=== PATIENT | female | born 1975 | race Caucasian/White ===

== ENCOUNTER 2022-09-25 14:07 | Outpatient (REF) | payer SELFPAY ==
[2022-09-25 14:14] LABS: MANUAL DIFF FLAG NO
[2022-09-25 14:19] LABS: Basophils Percent Auto 0.3 % (0-2); Eosinophils Absolute Auto 0.1 X10*3/uL (0.0-0.4); Eosinophils Percent Auto 0.7 % (0-4); Hematocrit 38.7 % (37.0-47.0); Hemoglobin 12.7 g/dl (12.0-16.0); Imm Gran Abs Auto 0.02 X10*3/uL (0.00-0.03); Imm Gran Pct Auto 0.3 % (0.0-0.4); Lymphocytes Absolute Auto 1.5 X10*3/uL (1.2-4.9); Lymphocytes Percent Auto 19.9 % (20-40); Mean Corpuscular HGB Conc 32.8 g/dl (31.0-35.0); Mean Corpuscular Hemoglobin 28.2 pg (27.0-33.0); Mean Platelet Volume 11.3 fL (9.4-12.3); Monocytes Absolute Auto 0.5 X10*3/uL (0.1-1.2); Monocytes Percent Auto 6.4 % (2-11); Neutrophils Absolute Auto 5.4 x10*3/uL (2.0-8.3); Neutrophils Percent Auto 72.4 % (45-73); Platelet Count 300 X10*3/uL (160-400); Red Cell Distribution Width 12.4 % (11.0-16.0); White Blood Count 7.5 X10*3/uL (4.8-10.8)
[2022-09-25 14:25] LABS: Appearance Urine Clear; Color Urine Yellow; Glucose Urine UA Negative (Negative); Leukocyte Esterase Urine Negative (Negative); Nitrite Urine Negative (Negative); Urine Blood Negative (Negative); Urine Ketones Negative (Negative); Urine Protein Trace mg/dL (Neg-Trace)
[2022-09-25 14:27] LABS: Bacteria Urine Trace (None Seen); WBC Urine 0-5 /HPF (0-5)
[2022-09-25 14:51] LABS: Cholesterol 237 mg/dL; HDL Cholesterol 56 mg/dL; LDL Cholesterol Calculated 152 mg/dl; Triglycerides 147 mg/dL
[2022-09-25 14:55] LABS: Alanine Aminotransferase 24 U/L (0-31); Albumin Level 4.1 g/dL (3.5-5.0); Alkaline Phosphatase 72 U/L (39-117); Anion Gap 14 (12-20); Aspartate Amino Transferase 20 U/L (5-31); Bilirubin Total 0.7 mg/dL (0.0-1.0); Blood Urea Nitrogen 11 mg/dL (9-16); Calcium 9.3 mg/dL (8.4-10.2); Carbon Dioxide 23 mmol/L (22-29); Chloride 106 mmol/L (96-108); Estimated Glomerular Filt Rate > 60; Glucose Fasting 97 mg/dL (60-99); Potassium 3.8 mmol/L (3.3-5.1); Sodium 139 mmol/L (135-145); Total Protein 7.1 g/dL (6.5-8.0)
[2022-09-25 14:58] LABS: Reflex LDLD? No
[2022-09-25 15:06] LABS: TSH reflex Free T4 1.03 uIU/mL (0.32-4.0)
== END 2022-09-25 14:08 | disposition home or self-care (01) ==
LOC: HO.LNP 14:07
PROVIDERS: Visit Provider Internal Medicine
DX: G43.909 Migraine, unspecified, not intractable, without status migrainosus (principal); E66.01 Morbid (severe) obesity due to excess calories; Z68.41 Body mass index [BMI] 40.0-44.9, adult
CPT/HCPCS: 80053; 80061; 81001; 84443; 85025

== ENCOUNTER 2022-10-26 12:50 | Outpatient (REF) | payer BC, SELFPAY ==
[2022-10-26 12:59] LABS: Appearance Urine Clear; Color Urine Yellow; Glucose Urine UA Negative (Negative); Leukocyte Esterase Urine Negative (Negative); Nitrite Urine Negative (Negative); PH 5.5 (5.0-9.0); Specific Gravity - Urine 1.025 (1.005-1.025); Urine Blood Negative (Negative); Urine Ketones Negative (Negative); Urine Protein Negative (Neg-Trace)
[2022-10-26 13:09] LABS: Bacteria Urine Trace (None Seen); Calcium Oxalate Crystals Urine Present; Hyaline Casts Urine 0-2 /LPF (0-2); WBC Urine 0-5 /HPF (0-5)
== END 2022-10-26 12:51 | disposition home or self-care (01) ==
LOC: HO.LNP 12:50
PROVIDERS: Visit Provider Internal Medicine
DX: R31.9 Hematuria, unspecified (principal)
CPT/HCPCS: 81001

== ENCOUNTER 2022-11-27 11:19 | Outpatient (REF) | payer BC, SELFPAY ==
[2022-11-27 11:52] LABS: Appearance Urine Clear; Color Urine Yellow; Glucose Urine UA Negative (Negative); Leukocyte Esterase Urine Negative (Negative); Nitrite Urine Negative (Negative); PH 5.5 (5.0-9.0); Specific Gravity - Urine 1.015 (1.005-1.025); Urine Blood Negative (Negative); Urine Ketones Negative (Negative); Urine Protein Negative (Neg-Trace)
[2022-11-27 11:59] LABS: Bacteria Urine None Seen (None Seen); Hyaline Casts Urine 0-2 /LPF (0-2); RBC Urine 0-2 /HPF (0-2); WBC Urine 0-5 /HPF (0-5)
== END 2022-11-27 11:20 | disposition home or self-care (01) ==
LOC: HO.LNP 11:19
PROVIDERS: Visit Provider Internal Medicine
DX: R31.9 Hematuria, unspecified (principal)
CPT/HCPCS: 81001

== ENCOUNTER 2023-05-23 14:31 | Outpatient (REF) | payer BC, SELFPAY ==
[2023-05-23 16:04] LABS: TSH reflex Free T4 1.62 uIU/mL (0.32-4.0)
[2023-05-24 19:37] LABS: Transglutaminase IgA <1.0 U/mL
[2023-05-24 20:44] LABS: Immunoglobulin A 145 mg/dL (47-310)
== END 2023-05-23 14:32 | disposition home or self-care (01) ==
LOC: HO.LAB 14:31
PROVIDERS: Visit Provider Internal Medicine Gastroenterology
DX: K58.2 Mixed irritable bowel syndrome (principal)
CPT/HCPCS: 36415; 82784; 84443; 86364

== ENCOUNTER 2023-07-02 07:28 | Day surgery (SDC) | payer BC, SELFPAY ==
[2023-06-28 14:27] VITALS: BMI 43.7
--- NOTE | 2023-07-01 09:45 | HO.ANESPROP2 ---
Documented by User: Ariadna Madrigal NP 07/01/23 09:45 HPI - Anesthesia Eval Consult details Narrative: 47yo F for Colonoscopy [facility] Past Medical History Medical History Peptic ulcer Seasonal allergic rhinitis IBS (irritable bowel syndrome) Migraine Surgical History Surgical History (Updated 07/02/23 @ 09:33 by Sherrie Liang RN) No pertinent past surgical history Social History Social History Patient Tobacco Use Status: Never used Tobacco Are you DNR?: No Advance Directives: No Advance Directives Information Provided: Yes Nutrition Risks: No Nutritional Risk FDLMP: a few days ago Meds Allergies Allergy/AdvReac Type Severity Reaction Status Date / Time No Known Allergies Allergy Verified 07/02/23 09:33 Home Medications ?Medication ?Instructions ?Recorded ?Confirmed ?Last Taken ?Type clemaqc-etjhoduiqamzq-rlxwzgoe 250 1 tab PO Q4-6H PRN Migraine 06/28/23 06/28/23 Unknown History mg-250 mg-65 mg tablet (Excedrin Headache Migraine) hyoscyamine sulfate 0.375 mg 0.375 mg PO BID 06/28/23 06/28/23 Unknown History tablet,extended release,12 hr sumatriptan succinate 50 mg tablet 50 mg PO BID PRN Migraine Headache 06/28/23 06/28/23 Unknown History Exam Height,Weight and Vital Signs: Height 5 ft 6 in Weight 122.924 kg Assessment and Plan Assessment Anesthesia Assessment: Chart Reviewed Documented by User: Maria Luz Giles MD 07/02/23 09:54 [facility] Active Problems Active Problems: Morbid Obesity BMI 42.8 Denies XU Past Medical History Medical History Peptic ulcer Seasonal allergic rhinitis IBS (irritable bowel syndrome) Migraine Family History Family history of problems with anesthesia: No Surgical History Surgical History (Updated 07/02/23 @ 09:33 by Sherrie Liang RN) No pertinent past surgical history History of Problems with Anesthesia: No Social History Social History Patient Tobacco Use Status: Never used Tobacco Are you DNR?: No Advance Directives: No Advance Directives Information Provided: Yes Nutrition Risks: No Nutritional Risk FDLMP: a few days ago Meds Allergies Allergy/AdvReac Type Severity Reaction Status Date / Time No Known Allergies Allergy Verified 07/02/23 09:33 Home Medications ?Medication ?Instructions ?Recorded ?Confirmed ?Last Taken ?Type benadsn-yemklfxapuoim-mhiehkqr 250 1 tab PO Q4-6H PRN Migraine 06/28/23 06/28/23 Unknown History mg-250 mg-65 mg tablet (Excedrin Headache Migraine) hyoscyamine sulfate 0.375 mg 0.375 mg PO BID 06/28/23 06/28/23 Unknown History tablet,extended release,12 hr sumatriptan succinate 50 mg tablet 50 mg PO BID PRN Migraine Headache 06/28/23 06/28/23 Unknown History Exam Height,Weight and Vital Signs: Height 5 ft 6 in Weight 122.924 kg Vital Signs Temp Pulse Resp BP Pulse Ox O2 Del Method 07/02/23 09:19 98.4 F 67 18 145/73 H 97 Room Air Pertinent Lab Results Pertinent Lab Results: Lab Results 07/02/23 Range/Units 08:30 Urine Test NEGATIVE (NEGATIVE) Airway Mallampati Class: II TM Dist: >3cm Neck ROM: Full Loose/Missing/Broken Teeth: No (Denies broken, loose, missing teeth) Heart: RRR Lungs: CTAB Assessment and Plan Assessment Anesthesia Assessment: Anesthesia Plan Discussed and Chart Reviewed Final Anesthetic Review Family History of Problems with Anesthesia: No History of Problems with Anesthesia: No NPO: Yes ASA Class: III Final Preanesthetic Review: No Changes in Pt Med Stat, Meds/Allgs Chart Reviewed, Consent Obtained/Reviewed and Anes Risks/Benef Reviewed Patient Risk: Intermediate Procedure Risk: Low Assessment/Block/Sedation in SS: Assess/Block/Sedation-SS Anesthetic Plan Anesthetic Plan: MAC: and TIVA Disposition: Standard PACU
[2023-07-02 08:33] VITALS: BMI 42.8
[2023-07-02 08:42] LABS: UPreg QC Valid YES; Urine Pregnancy NEGATIVE (NEGATIVE)
[2023-07-02] MEDS: Lactated Ringers 1,000 ML 100 ML IVCONT (08:46)
[2023-07-02 09:19] VITALS: BP 145/73; PULSE 67; RESP 18; TEMP 36.9; O2SAT 97
--- NOTE | 2023-07-02 09:33 | MHC.SHP ---
Pre-Procedural Eval Section A - 24 Hr Update-Section A only Date of Service: 07/02/23 Section B - Complete if H&P > 30 days Chief Complaint: Encounter for screening for malignant neoplasm of Details of Present Illness: see H&P no changes Relevant Family History (Specify if Yes): No Relevant Social History: None Present Medications: None Medical History: No relevant PMH History of Previous Operations: No relevant previous surgery Allergies: Allergies Allergy/AdvReac Type Severity Reaction Status Date / Time No Known Allergies Allergy Verified 06/28/23 14:27 Review of Systems Sugical H&P ROS: Negative: Constitution, Cardiovascular, Respiratory, Neurological, Psychiatric, Hem-Onc, Allergic/Immunologic, Gastrointestinal, Genitourinary, Musculoskeletal, Integumentary, Endocrine and Eyes/Ears/Nose/Throat Exam Surgical H&P Exam: Normal: HEENT, Normal: Heart, Normal: Lungs, Normal: Extremities, Normal: Abdomen, Normal: Skin and Normal: Neurological Plan Diagnosis/Plan: Unchanged I have reviewed the history and physical and performed a pertinent physical examination on my patient. No changes have occurred unless specified. Time Spent With Patient Time: Total time managing care of this patient today ____ minutes.
[2023-07-02 10:09] VITALS: BP 102/75; PULSE 66; RESP 12; TEMP 37.6; O2SAT 98
--- NOTE | 2023-07-02 10:24 | OP_ITS ---
DATE OF SERVICE: 07/02/2023 SURGEON: Mitesh Sr MD INDICATIONS: Colon cancer screening. PREOPERATIVE DIAGNOSIS: POSTOPERATIVE DIAGNOSIS: PROCEDURE PERFORMED: Colonoscopy to the terminal ileum. ESTIMATED BLOOD LOSS: COMPLICATIONS: ANESTHESIA: Monitored anesthesia care. ASSISTANTS: SPECIMENS: DESCRIPTION OF PROCEDURE: A history and physical was performed. The risks and benefits of the procedure were explained to the patient and informed consent was obtained. The patient was placed in the left lateral decubitus position. A digital rectal exam was performed and was found to be normal. The Olympus pediatric video colonoscope was introduced into the rectum and advanced to the cecum. The cecum was identified by transillumination, palpation, and identification of ileocecal valve. Examination was performed and the scope was removed. She tolerated the procedure well and was returned to recovery area in stable condition. FINDINGS: The terminal ileum was normal. The visualized colonic mucosa was within normal limits without evidence of masses or ulcers. No polyps were identified. The quality of the prep was good. Retroflexed examination showed small internal hemorrhoids. IMPRESSION: Normal colonoscopy. RECOMMENDATIONS: 1. Follow up as needed. 2. Repeat colonoscopy is recommended in 10 years for average-risk individuals. MD CELE Gloria/MI / [phone]
[2023-07-02 10:34] VITALS: BP 131/80; PULSE 61; RESP 18; TEMP 36.3; O2SAT 98
== END 2023-07-02 11:01 | disposition home or self-care (01) ==
PROVIDERS: Nurse Practitioner; PCP Internal Medicine; Visit Provider Internal Medicine Gastroenterology
PROC: 0DJD8ZZ Inspection of Lower Intestinal Tract, Via Natural or Artificial Opening Endoscopic (ICD-10-PCS; CPT 45378; principal; 2023-07-02 09:50)
DX: Z12.11 Encounter for screening for malignant neoplasm of colon (principal); K64.8 Other hemorrhoids; K58.2 Mixed irritable bowel syndrome
CPT/HCPCS: 45378; 81025; J2704

== ENCOUNTER 2024-01-10 10:29 | Outpatient (REF) | payer BC, SELFPAY ==
[2024-01-10 10:32] LABS: MANUAL DIFF FLAG NO
[2024-01-10 11:29] LABS: Basophils Percent Auto 0.4 % (0-2); Eosinophils Absolute Auto 0.1 X10*3/uL (0.0-0.4); Eosinophils Percent Auto 1.1 % (0-4); Hematocrit 38.6 % (37.0-47.0); Hemoglobin 12.5 g/dl (12.0-16.0); Imm Gran Abs Auto 0.03 X10*3/uL (0.00-0.03); Imm Gran Pct Auto 0.4 % (0.0-0.4); Lymphocytes Absolute Auto 2.5 X10*3/uL (1.2-4.9); Lymphocytes Percent Auto 31.3 % (20-40); Mean Corpuscular HGB Conc 32.4 g/dl (31.0-35.0); Mean Corpuscular Hemoglobin 28.2 pg (27.0-33.0); Mean Corpuscular Volume 87.1 fL (80.0-98.0); Mean Platelet Volume 11.4 fL (9.4-12.3); Monocytes Absolute Auto 0.5 X10*3/uL (0.1-1.2); Monocytes Percent Auto 6.6 % (2-11); Neutrophils Absolute Auto 4.8 x10*3/uL (2.0-8.3); Neutrophils Percent Auto 60.2 % (45-73); Platelet Count 294 X10*3/uL (160-400); Red Blood Count 4.43 X10*6/uL (4.20-5.50); Red Cell Distribution Width 12.7 % (11.0-16.0)
[2024-01-10 11:30] LABS: Appearance Urine Cloudy; Color Urine Yellow; Glucose Urine UA Negative (Negative); Leukocyte Esterase Urine Negative (Negative); Nitrite Urine Negative (Negative); PH 5.5 (5.0-9.0); Specific Gravity - Urine 1.015 (1.005-1.025); UMIC TRIGGER UACC YES; Urine Blood Moderate (2+) (Negative); Urine Ketones Negative (Negative); Urine Protein Negative (Neg-Trace)
[2024-01-10 11:48] LABS: Bacteria Urine 3+ (None Seen); Hyaline Casts Urine 0-2 /LPF (0-2); RBC Urine 0-2 /HPF (0-2); WBC Urine 0-5 /HPF (0-5)
[2024-01-10 12:13] LABS: Alanine Aminotransferase 44 U/L (0-31); Albumin Level 3.9 g/dL (3.5-5.0); Alkaline Phosphatase 79 U/L (39-117); Anion Gap 11 (12-20); Aspartate Amino Transferase 32 U/L (5-31); Bilirubin Total 0.2 mg/dL (0.0-1.0); Blood Urea Nitrogen 9 mg/dL (9-16); Calcium 9.4 mg/dL (8.4-10.2); Carbon Dioxide 24 mmol/L (22-29); Chloride 107 mmol/L (96-108); Cholesterol 217 mg/dL (<200); Estimated Glomerular Filt Rate > 60; Glucose Fasting 97 mg/dL (60-99); HDL Cholesterol 55 mg/dL (>40); LDL Cholesterol Calculated 131 mg/dL (<100); Potassium 4.1 mmol/L (3.3-5.1); Sodium 138 mmol/L (135-145); Total Protein 6.9 g/dL (6.5-8.0); Triglycerides 159 mg/dL (<150)
== END 2024-01-10 10:30 | disposition home or self-care (01) ==
LOC: HO.LNP 10:29
PROVIDERS: Visit Provider Internal Medicine
DX: Z00.00 Encounter for general adult medical examination without abnormal findings (principal)
CPT/HCPCS: 80053; 80061; 81001; 85025

== ENCOUNTER 2024-02-20 08:50 | Emergency (ER) | payer BC, SELFPAY ==
[2024-02-20 08:55] VITALS: BP 107/71; PULSE 106; RESP 16; TEMP 36.8; O2SAT 96; BMI 42.7
[2024-02-20 09:40] LABS: Basophils Percent Auto 0.2 % (0-2); Hematocrit 39.4 % (37.0-47.0); Hemoglobin 13.7 g/dl (12.0-16.0); Imm Gran Abs Auto 0.04 X10*3/uL (0.00-0.03); Imm Gran Pct Auto 0.3 % (0.0-0.4); Lymphocytes Absolute Auto 0.4 X10*3/uL (1.2-4.9); Lymphocytes Percent Auto 3.7 % (20-40); MANUAL DIFF FLAG SCAN; Mean Corpuscular HGB Conc 34.8 g/dl (31.0-35.0); Mean Corpuscular Volume 83.5 fL (80.0-98.0); Monocytes Absolute Auto 0.6 X10*3/uL (0.1-1.2); Neutrophils Absolute Auto 10.8 x10*3/uL (2.0-8.3); Neutrophils Percent Auto 90.8 % (45-73); Platelet Count 304 X10*3/uL (160-400); Red Blood Count 4.72 X10*6/uL (4.20-5.50); Red Cell Distribution Width 12.8 % (11.0-16.0); SCAN SMEAR FLAG 1; White Blood Count 11.9 X10*3/uL (4.8-10.8)
--- NOTE | 2024-02-20 09:41 | ED.NAVMDI ---
HPI - Nausea/Vomiting/Diarrhea General Chief complaint: Nausea/Vomiting/Diarrhea Stated complaint: quest food poison Time Seen by Provider: 02/20/24 09:29 Source: patient, RN notes reviewed and old records reviewed Mode of arrival: ambulatory History of Present Illness ED Provider: Kelsey Franklin PA-C HPI Narrative: 48-year-old female with a past medical history of IBS, migraines, peptic ulcer, presenting to the ED complaining of suspected food poisoning with abdominal discomfort, nausea, vomiting, and diarrhea since yesterday. Reports abdominal pain when vomiting. Denies hematemesis, bloody BMs or melena, suspicious food intake, recent travel, dysuria/hematuria, sick contacts Related Data Home Medications ?Medication ?Instructions ?Recorded ?Confirmed fudvbzs-eifzuiszimwka-eoqdzsuh 250 1 tab PO Q4-6H PRN Migraine 06/28/23 06/28/23 mg-250 mg-65 mg tablet (Excedrin Headache Migraine) hyoscyamine sulfate 0.375 mg 0.375 mg PO BID 06/28/23 06/28/23 tablet,extended release,12 hr sumatriptan succinate 50 mg tablet 50 mg PO BID PRN Migraine Headache 06/28/23 06/28/23 Previous Rx's ?Medication ?Instructions ?Recorded ondansetron 4 mg disintegrating 4 mg PO Q8H PRN nausea and 02/20/24 tablet vomiting #10 tabs Allergies Allergy/AdvReac Type Severity Reaction Status Date / Time No Known Allergies Allergy Verified 02/20/24 08:58 Review of Systems Review of Systems: Yes all other systems are reviewed and are negative Constitutional: Constitutional: Reports as per [facility] Past Medical History Attestation statement: The following information was validated with the patient. Source: old records reviewed Medical History Peptic ulcer Seasonal allergic rhinitis IBS (irritable bowel syndrome) Migraine Surgical History No pertinent past surgical history Social History Social History Patient Tobacco Use Status: Never used Tobacco Smoked in Last 30 Days: No Use of substances other than those prescribed or required for medical reasons: No Advance Directives: No Patient : No Physical Exam Vital Signs: Vital Signs: Last Vital Signs Temp 98.6 F 02/20/24 13:15 Pulse 82 02/20/24 13:15 Resp 16 02/20/24 13:15 BP 109/72 02/20/24 13:15 Pulse Ox 96 02/20/24 13:15 O2 Del Method Room Air 02/20/24 13:15 BMI result Body Mass Index 42.7 Const: General: cooperative, healthy appearing and no acute distress Orientation/consciousness: patient oriented x3 Limitations: no limitations HEENT: Head: Yes normal to inspection and Yes atraumatic Ears: hearing grossly normal bilaterally General nose exam: Normal external nose present Face and sinus: Yes normal facial exam Eyes: General: appearance normal, both eyes and all related structures EOM: EOMs intact bilaterally Neck: Neck: Yes normal visual inspection and Yes no meningeal signs Resp: Effort & Inspection: normal respiratory effort and no respiratory distress Auscultation: clear to auscultation bilaterally Cardio: Rate: regular rate Heart sounds: S1 normal heart sound present and S2 normal heart sound present GI: Inspection: Yes normal to inspection Palpation (GI): Soft to palpation, nontender, no guarding and not rigid : General: Yes no CVA tenderness Back/Spine/Pelvis: Back: no CVA tenderness Skin: Rashes: no rashes Wounds: no wounds Neuro: General: patient oriented x3, tone normal and no meningeal signs Cranial nerves: Yes CN's II-XII intact bilaterally Gait exam (Neuro): Normal gait present Extrem: General: Yes normal to inspection Course Course Course Narrative: -1135--labs reassuring. Patient unable to supply UA or stool studies yet at this time. Will p.o. trial -1248--patient reports symptomatic improvement on re-evaluation. Patient tolerated p.o. without pain, nausea or vomiting. UA negative. > feels comfortable for discharge at this time Medications Administered Discontinued Medications Generic Name Dose Route Start Last Admin Trade Name Freq PRN Reason Stop Dose Admin Famotidine 20 mg 02/20/24 09:39 02/20/24 09:51 Famotidine/Pf 20 Mg/2 Ml Vial IVPUSH 02/20/24 09:40 20 mg ONCE ONE Administration Sodium Chloride 1,000 mls @ 999 mls/hr 02/20/24 09:45 02/20/24 10:46 Ns IV 02/20/24 10:45 Infused .Q1H1M BELEN Infusion Ketorolac Tromethamine 15 mg 02/20/24 09:39 02/20/24 09:50 Ketorolac Tromethamine 15 Mg/Ml Vial IVPUSH 02/20/24 09:40 15 mg ONCE ONE Administration Ondansetron HCl 4 mg 02/20/24 09:39 02/20/24 09:49 Ondansetron Hcl 4 Mg/2 Ml Vial IVPUSH 02/20/24 09:40 4 mg ONCE ONE Administration Medical Decision Making Medical Decision Making MDM Narrative: 48-year-old female with a past medical history of IBS, migraines, peptic ulcer, presenting to the ED complaining of suspected food poisoning with abdominal discomfort, nausea, vomiting, and diarrhea since yesterday. On exam mildly tachycardic likely from dehydration, NAD, nontoxic appearing, abdomen soft/nontender, no CVAT. Concern for gastroenteritis vs food poisoning vs metabolic abnormalities. Low suspicion for severe sepsis at this time. Low suspicion for acute pancreatitis/cholecystitis/lithiasis, appendicitis or diverticulitis without tenderness on exam Plan: Labs, UA, IVF, antiemetics, re-evaluate Please refer to course for remaining clinical decision making, interpretation of labs/imaging results, and discussions with consultants and/or family members. Differential Diagnosis Differential Diagnoses: The differential diagnosis associated with the presentation includes As above Admission/Observation Consideration of admission/observation: Escalation of care including admission/observation considered Lab Data [facility] Lab Attestation statement: I reviewed the patient's lab results. 02/20/24 09:28 02/20/24 09:28 Labs: Lab Results 02/20/24 02/20/24 Range/Units 09:28 12:37 WBC 11.9 H (4.8-10.8) X10*3/uL RBC 4.72 (4.20-5.50) X10*6/uL Hgb 13.7 (12.0-16.0) g/dl Hct 39.4 (37.0-47.0) % MCV 83.5 (80.0-98.0) fL MCH 29.0 (27.0-33.0) pg MCHC 34.8 (31.0-35.0) g/dl RDW 12.8 (11.0-16.0) % Plt Count 304 (160-400) X10*3/uL MPV 11.0 (9.4-12.3) fL Immature Gran % (Auto) 0.3 (0.0-0.4) % Neut % (Auto) 90.8 H (45-73) % Lymph % (Auto) 3.7 L (20-40) % Martin % (Auto) 5.0 (2-11) % Eos % (Auto) 0.0 (0-4) % Baso % (Auto) 0.2 (0-2) % Lymph # (Auto) 0.4 L (1.2-4.9) X10*3/uL Martin # (Auto) 0.6 (0.1-1.2) X10*3/uL Eos # (Auto) 0.0 (0.0-0.4) X10*3/uL Baso # (Auto) 0.0 (0.0-0.2) X10*3/uL Abs Immat Gran (auto) 0.04 H (0.00-0.03) X10*3/uL Absolute Neuts (auto) 10.8 H (2.0-8.3) x10*3/uL Absolute Nucleated RBC 0.000 (0.0-0.012) X10*3/uL Nucleated RBC % (auto) 0.0 (0.0-0.2) /100WBC Smear Tech's Comments VERIFIED Sodium 136 (135-145) mmol/L Potassium 4.2 (3.3-5.1) mmol/L Chloride 105 (96-108) mmol/L Carbon Dioxide 23 (22-29) mmol/L Anion Gap 12 (12-20) BUN 19 H (9-16) mg/dL Creatinine 0.98 (0.5-1.4) mg/dL Estim Creat Clear Calc 94.6 Estimated GFR > 60 Random Glucose 135 H (60-115) mg/dL Calcium 9.3 (8.4-10.2) mg/dL Magnesium 1.6 (1.6-2.6) mg/dL Total Bilirubin 0.5 (0.0-1.0) mg/dL Direct Bilirubin 0.2 (0.0-0.5) mg/dL AST 27 (5-31) U/L ALT 30 (0-31) U/L Alkaline Phosphatase 72 (39-117) U/L Total Protein 7.4 (6.5-8.0) g/dL Albumin 4.1 (3.5-5.0) g/dL Lipase 12 (8-78) U/L Urine Color Dark Yellow Urine Appearance Turbid Urine pH 5.5 (5.0-9.0) Ur Specific [place] >= 1.030 H (1.005-1.025) Urine Protein 30 (1+) H (Neg-Trace) mg/dL Urine Glucose (UA) Negative (Negative) mg/dL Urine Ketones Trace (Negative) mg/dL Urine Blood Negative (Negative) Urine Nitrite Negative (Negative) Ur Leukocyte Esterase Negative (Negative) Urine RBC 0-2 (0-2) /HPF Urine WBC 0-5 (0-5) /HPF Ur Squamous Epith Cells 6-10 (0-2) /HPF Urine Bacteria 1+ (None Seen) Hyaline Casts 3-5 (0-2) /LPF Urine Test NEGATIVE (NEGATIVE) Radiology Impression Discussion of test interpretation with radiology: I have reviewed the radiologist's reading. External Record Review External record reviewed: Inpatient record, Office record, Outpatient record, Prior outpatient labs, Prior outpatient radiology, Primary care record and Outside ED record Tests considered The following testing was considered but not selected: As above Prescription Management I considered prescription management with: Pain Medication and Antibiotic Chronic Conditions Patient?s care impacted by: Other Social Determinants Patient?s care significantly limited by Social Determinants of Health including: Other Social Determinant of Health Discharge Plan Discharge Clinical Impression: Gastroenteritis Patient Disposition: Home, Self-Care Instructions: Gastroenteritis (DC) Additional Instructions: Your blood work and urine are reassuring Please have close follow-up with her doctor Practice a bland diet for the next few days, avoid spicy foods, sweets, caffeine and chocolate Zofran as for nausea, take as needed for nausea and vomiting Make sure you are staying hydrated If her symptoms persist or worsen, you are unable to eat or drink have persistent nausea or vomiting or diarrhea return to the ED Prescriptions: New ondansetron 4 mg tablet,disintegrating 4 mg PO Q8H PRN (Reason: nausea and vomiting) Qty: 10 0RF No Action sumatriptan succinate 50 mg tablet 50 mg PO BID PRN (Reason: Migraine Headache) hyoscyamine sulfate 0.375 mg tablet extended release 12 hr 0.375 mg PO BID Excedrin Migraine 250-250-65 mg Tablet 1 tab PO Q4-6H PRN (Reason: Migraine Headache) Referrals: Bradley Carcamo MD [Primary Care Provider] - 3 days Stand Alone Forms: Work/School Release Interventions: ED Discharge Assessment Last Done: 02/20/24 13:15 Discharge Date/Time: 02/20/24 13:16 Print Language: Cook Islander
[2024-02-20] MEDS: 0.9 % Sodium Chloride 1,000 ML 999 ML IV (09:48)
[2024-02-20] MEDS: ondansetron HCL 4 MG/2 ML VIAL IVPUSH (09:49)
[2024-02-20] MEDS: Ketorolac Tromethamine 15 MG/ML VIAL IVPUSH (09:50)
[2024-02-20] MEDS: Famotidine/PF 20 MG/2 ML VIAL IVPUSH (09:51)
[2024-02-20 09:54] LABS: Anion Gap 12 (12-20)
[2024-02-20 09:56] LABS: Alanine Aminotransferase 30 U/L (0-31); Albumin Level 4.1 g/dL (3.5-5.0); Alkaline Phosphatase 72 U/L (39-117); Aspartate Amino Transferase 27 U/L (5-31); Bilirubin Direct 0.2 mg/dL (0.0-0.5); Bilirubin Total 0.5 mg/dL (0.0-1.0); Blood Urea Nitrogen 19 mg/dL (9-16); Calcium 9.3 mg/dL (8.4-10.2); Carbon Dioxide 23 mmol/L (22-29); Chloride 105 mmol/L (96-108); Creatinine Clr Calc Pharmacy 94.6; Estimated Glomerular Filt Rate > 60; Glucose Random 135 mg/dL (60-115); Lipase 12 U/L (8-78); Magnesium 1.6 mg/dL (1.6-2.6); Potassium 4.2 mmol/L (3.3-5.1); Sodium 136 mmol/L (135-145); Total Protein 7.4 g/dL (6.5-8.0)
[2024-02-20 09:59] LABS: SLIDE REVIEW VERIFIED
[2024-02-20 12:41] VITALS: BP 109/72; PULSE 82; RESP 16; TEMP 37; O2SAT 96
[2024-02-20 12:44] LABS: Appearance Urine Turbid; Color Urine Dark Yellow; Glucose Urine UA Negative (Negative); Leukocyte Esterase Urine Negative (Negative); Nitrite Urine Negative (Negative); PH 5.5 (5.0-9.0); Specific Gravity - Urine >= 1.030 (1.005-1.025); UMIC TRIGGER UACC YES; UPreg QC Valid YES; Urine Blood Negative (Negative); Urine Ketones Trace mg/dL (Negative); Urine Protein 30 (1+) mg/dL (Neg-Trace)
[2024-02-20 12:45] LABS: Urine Pregnancy NEGATIVE (NEGATIVE)
[2024-02-20 12:46] LABS: Bacteria Urine 1+ (None Seen); RBC Urine 0-2 /HPF (0-2); WBC Urine 0-5 /HPF (0-5)
[2024-02-20 13:15] VITALS: BP 109/72; PULSE 82; RESP 16; TEMP 37; O2SAT 96
== END 2024-02-20 13:16 | disposition home or self-care (01) ==
PROVIDERS: Physician Assistant; Emergency Provider Emergency Medicine; PCP Internal Medicine
DX: K52.9 Noninfective gastroenteritis and colitis, unspecified (principal); R11.2 Nausea with vomiting, unspecified
CPT/HCPCS: 36415; 80048; 80076; 81001; 81025; 83690; 83735; 85025; 96361; 96374; 96375; 99284; 99285; J1885; J2405

== ENCOUNTER 2024-04-10 09:41 | Outpatient (REF) | payer BC, SELFPAY ==
--- NOTE | ~2024-04-10 | FL_ITS ---
EXAMINATION: XR FLUOROSCOPY UPPER GI SERIES CLINICAL INFORMATION: Dysphagia, reflux, has been improving since treatment with omeprazole. COMPARISON: None TECHNIQUE: Fluoroscopic air contrast upper GI examination was performed utilizing standard techniques with thin and thick barium and effervescent granules. Numerous spot images were obtained. Several fluoroscopic image hold cine sequences were also obtained. FINDINGS: UPPER GI SERIES: Lateral cine images of the oropharynx and hypopharynx demonstrate normal swallow mechanism with normal epiglottic inversion and soft palate elevation. No tracheal penetration, glottic or subglottic aspiration identified. No nasopharyngeal reflux present. Hypopharyngeal structures appear normal without evidence of mass or diverticulum. There was no significant cricopharyngeal achalasia. Dual and single contrast images of the esophagus demonstrate normal caliber, contour, and mucosal pattern. No evidence of stricture, mass, or ulcerations identified. Esophageal peristalsis was minimally disordered. No evidence of hiatus hernia identified. There was significant gastroesophageal reflux to the level of the thoracic inlet. Dual contrast and single contrast images of the stomach demonstrated normal contour and mucosal pattern without evidence of mass, ulceration, or other abnormality. Contrast freely passed into the gastric antrum and duodenal bulb without delay. Single and air-contrast images of the duodenal bulb demonstrate no abnormality. The duodenal sweep has a normal appearance, course, and mucosal fold appearance. FLUOROSCOPY TIME: 2 minutes, 33 seconds Number of Spot Images:10 Number of cines obtained: 12 DOSE AREA PRODUCT: 3256 uGy-m2 (microgray-meter squared) FL/FL upper GI w air IMPRESSION: 1. There was significant gastroesophageal reflux observed during the course of the examination. 2. Minimally disordered esophageal peristalsis. Otherwise normal appearing esophagus. 3. No hiatus hernia. Stomach and duodenum are normal in appearance. Electronically signed by: Gustavo Oliver MD 04/10/2024 10:39 AM [facility]
--- OUTSIDE RECORDS SUMMARY | 2024-04-10 10:11 | XMS_ITS ---
Author Organization [facility] Address [address] [place] [id number] Care Team Providers Care Candy Attendant Name Role Phone Dona HUNT, Bradley Primary Care Provider Morena Sr Jr, Mitesh Unavailable ALLERGIES No Known Allergies RESULTS Component Value Reference Range Notes TSH reflex Free T4 Reviewed date:05/28/2023 04:33:32 PM Interpretation: Performing Lab:[facility], [address] [place] [phone] Notes/Report: TSH reflex Free T4 1.62 0.32-4.0 uIU/mL REASON FOR VISIT Patient presents today for IRRITABLE BOWEL SYNDROME MEDICATIONS Medication SIG (Take, Route, Frequency, Duration) Notes Start Date End Date Status Excedrin Migraine 250-250-65 MG 2 tablets Orally Once a day for 30 day(s) Active Claritin 10 MG 1 tablet Orally Once a day for 30 day(s) Active Hyoscyamine Sulfate ER 0.375 MG Oral for 30 Active MiraLax (colon prep) 17 GM/SCOOP mixed with Gatorade or Crystal Light Orally begin at 5:00 p.m. the day before the procedure for 1 day 05/23/2023 Active Hyoscyamine Sulfate ER 0.375 MG 1 tablet Orally every 12 hrs for 30 day(s) 05/23/2023 Active SUMAtriptan Succinate 50 MG Oral for 10 Active SOCIAL HISTORY Tobacco Use: Social History Observation Description Date Details (start date - stop date) Never Smoker NA - NA Sex Assigned At : Social History Observation Description Sex Assigned At Unknown Tobacco Use/Smoking Question Answer Notes Patient is a nonsmoker Alcohol Screen Question Answer Notes Did you have a drink contain ing alcohol in the past year? Yes How often did you have a dri nk containing alcohol in the past year? Never (0 point) How many drinks did you have on a typical day when you were drinking in the past year? 1 or 2 drinks (0 point) How often did you have 6 or more drinks on one occasion in the past year? Never (0 point) Points 0 Interpretation Negative PROBLEMS Problem Type ICD Code Onset Dates Problem Status W/U Status Risk SNOMED Code Notes Problem Irritable bowel syndrome with both constipation and diarrhea (K58.2) Active confirmed 05202839 Problem Colon cancer screening (Z12.11) Active confirmed 755192993 VITAL SIGNS BMI 43.74 kg/m2 05/23/2023 Blood pressure systolic 00 mm Hg 05/23/19 24 Blood pressure diastolic 00 mm Hg 024 Height 5 ft 6 in in 05/23/2023 Weight 271 lbs 05/23/2023 Encounters Encounter Location Date Provider Diagnosis [facility] [address] [facility] [address] [place] [id number] 05/23/2023 Mitesh Sr Jr Irritable bowel syndrome with both constipation and diarrhea K58.2 and Colon cancer screening Z12.11 ASSESSMENTS Encounter Date Diagnosis Assessment Notes Treatment Notes Treatment Clinical Notes 05/23/2023 Irritable bowel syndrome with both constipation and diarrhea (ICD-10 - K58.2) Irritable bowel syndrome material was printed 05/23/2023 Colon cancer screening (ICD-10 - Z12.11) PLAN OF TREATMENT Medication Medication Name Sig Start Date Stop Date Notes MiraLax (colon prep) 17 GM/SCOOP mixed with Gatorade or Crystal Light Orally begin at 5:00 p.m. the day before the procedure for 1 day 05/23/2023 Hyoscyamine Sulfate ER 0.375 MG 1 tablet Orally every 12 hrs for 30 day(s) 05/23/2023 Treatment Notes Assessment Notes Irritable bowel syndrome wit h both constipation and diarrhea Irritable bowel syndrome material was printed Pending Test Test Name Order Date IgA 05/23/2023 TRANSGLUTAMINASE AB IGA 05/23/2023 Future Test Test Name Order Date COLONOSCOPY 05/23/2023 Next Appt Details Follow Up: 1 Year, Reason: Progress Notes * Examination Category Sub-Category Detail Notes General Examination GENERAL APPEARANCE: in no ac absentee-shawnee distress HEAD: normocephalic EYES: sclera non-icteric NECK/THYROID: no lymphadenopathy HEART: S1, S2 normal, no mu rmurs CHEST: normal shape and exp ansion LUNGS: clear to auscultatio n bilaterally ABDOMEN: soft, nontender, non distended, bowel sounds present, no organomegaly SKIN: anicteric. Tattoos a re present EXTREMITIES: no clubbing, cyanosi s, or edema PSYCH: cognitive function i ntact ORAL CAVITY: mucosa moist
--- OUTSIDE RECORDS SUMMARY | 2024-04-10 10:11 | XMS_ITS | Patient Health Record ---
Author Organization Bradley Carcamo MD Address [address] [place], [place] [id number] Care Team Providers Care Injection Press Operator Name Role Phone Bradley Carcamo Primary Care Provider Allergies No Known Allergies Results Component Value Reference Range Notes Complete Blood Count Auto Di ff Reviewed date:01/10/2024 12:46:28 PM Interpretation: Performing Lab:[facility], [address] [place] [phone] Notes/Report: White Blood Count 8.0 4.8-10.8 X10*3/uL Red Blood Count 4.43 4.20-5.50 X10*6/uL Hemoglobin 12.5 12.0-16.0 g/dl Hematocrit 38.6 37.0-47.0 % Mean Corpuscular Volume 87.1 80.0-98.0 fL Mean Corpuscular Hemoglobin 28.2 27.0-33.0 pg Mean Corpuscular HGB Conc 32.4 31.0-35.0 g/dl Red Cell Distribution Width 12.7 11.0-16.0 % Platelet Count 294 160-400 X10*3/uL Mean Platelet Volume 11.4 9.4-12.3 fL Neutrophils Percent Auto 60.2 45-73 % Imm Gran Pct Auto 0.4 0.0-0.4 % Lymphocytes Percent Auto 31.3 20-40 % Monocytes Percent Auto 6.6 2-11 % Eosinophils Percent Auto 1.1 0-4 % Basophils Percent Auto 0.4 0-2 % NRBC Pct Auto 0.0 0.0-0.2 /100WBC Neutrophils Absolute Auto 4.8 2.0-8.3 x10*3/u L Imm Gran Abs Auto 0.03 0.00-0.03 X10*3/uL Lymphocytes Absolute Auto 2.5 1.2-4.9 X10*3/u L Monocytes Absolute Auto 0.5 0.1-1.2 X10*3/uL Eosinophils Absolute Auto 0.1 0.0-0.4 X10*3/u L Basophils Absolute Auto 0.0 0.0-0.2 X10*3/uL NRBC Abs Auto 0.000 0.0-0.012 X10*3/uL Comprehensive [place]. Panel Fa st Reviewed date:01/10/2024 12:48:05 PM Interpretation: Performing Lab:[facility], [address] [place] [phone] Notes/Report: Sodium 138 135-145 mmol/L Potassium 4.1 3.3-5.1 mmol/L Chloride 107 96-108 mmol/L Carbon Dioxide 24 22-29 mmol/L Anion Gap 11 12-20 Blood Urea Nitrogen 9 9-16 mg/dL Creatinine 0.77 0.5-1.4 mg/dL Estimated Glomerular Filt Rate > 60 Chronic Kidney Disease: Estimated GFR < 60 mL/min/1.73m2 Severe Kidney Disease: Estimated GFR < 15 mL/min/1.73m2 Glucose Fasting 97 60-99 mg/dL Calcium 9.4 8.4-10.2 mg/dL Bilirubin Total 0.2 0.0-1.0 mg/dL Aspartate Amino Transferase 32 5-31 U/L Alanine Aminotransferase 44 0-31 U/L Total Protein 6.9 6.5-8.0 g/dL Albumin Level 3.9 3.5-5.0 g/dL Alkaline Phosphatase 79 39-117 U/L Lipid Panel Reviewed date:01/10/2024 12:16:21 PM Interpretation: Performing Lab:[facility], [address] [place] [phone] Notes/Report: Triglycerides 159 <150 mg/dL Desirable Triglyceride: less than 150 mg/dL Borderline High Triglyceride 150-199 mg/dL High Triglyceride: 200-499 mg/dL Very High Triglyceride: greater than or equal to 5OO mg/dL Cholesterol 217 <200 mg/dL Desirable Cholesterol: less than 200 mg/dL Borderline High Cholesterol: 200-239 mg/dL High Cholesterol: greater than 239 mg/dL LDL Cholesterol Calculated 131 <100 mg/dL Desirable LDL: less than 100 mg/dL Near Optimal/Above Optimal LDL: 110-129 mg/dL Borderline High LDL: 130-159 mg/dL High LDL: 160-189 mg/dL Very High LDL: greater than or equal to 190 mg/dL HDL Cholesterol 55 >40 mg/dL Desirable HDL: greater than 40 mg/dL Note: This HDL assay may give artificially low results in patients with liver disease. UA ClnCatch+Micro w/rflx Cul t Reviewed date:01/21/2024 02:59:27 PM Interpretation:CBACK 01/20 HEMATURIA Performing Lab:[facility], [address] [place] [phone] Notes/Report: Urine, Clean Catch Color Urine Yellow Appearance Urine Cloudy PH 5.5 5.0-9.0 Glucose Urine UA Negative Negative mg/dL Urine Blood Moderate (2+) Negative Specific [place] - Urine 1.015 1.005-1.025 Urine Protein Negative Neg-Trace mg/dL Urine Ketones Negative Negative mg/dL Nitrite Urine Negative Negative Leukocyte Esterase Urine Negative Negative RBC Urine 0-2 0-2 /HPF WBC Urine 0-5 0-5 /HPF Squamous Epithelial Cell Urine 11-20 0-2 /HPF Bacteria Urine 3+ None Seen Hyaline Casts Urine 0-2 0-2 /LPF Complete Blood Count Auto Di ff Reviewed date:02/20/2024 11:04:34 AM Interpretation: Performing Lab:[address] [phone] Notes/Report: White Blood Count 11.9 4.8-10.8 X10*3/uL Red Blood Count 4.72 4.20-5.50 X10*6/uL Hemoglobin 13.7 12.0-16.0 g/dl Hematocrit 39.4 37.0-47.0 % Mean Corpuscular Volume 83.5 80.0-98.0 fL Mean Corpuscular Hemoglobin 29.0 27.0-33.0 pg Mean Corpuscular HGB Conc 34.8 31.0-35.0 g/dl Red Cell Distribution Width 12.8 11.0-16.0 % Platelet Count 304 160-400 X10*3/uL Mean Platelet Volume 11.0 9.4-12.3 fL Neutrophils Percent Auto 90.8 45-73 % Imm Gran Pct Auto 0.3 0.0-0.4 % Lymphocytes Percent Auto 3.7 20-40 % Monocytes Percent Auto 5.0 2-11 % Eosinophils Percent Auto 0.0 0-4 % Basophils Percent Auto 0.2 0-2 % NRBC Pct Auto 0.0 0.0-0.2 /100WBC Neutrophils Absolute Auto 10.8 2.0-8.3 x10*3/u L Imm Gran Abs Auto 0.04 0.00-0.03 X10*3/uL Lymphocytes Absolute Auto 0.4 1.2-4.9 X10*3/u L Monocytes Absolute Auto 0.6 0.1-1.2 X10*3/uL Eosinophils Absolute Auto 0.0 0.0-0.4 X10*3/u L Basophils Absolute Auto 0.0 0.0-0.2 X10*3/uL NRBC Abs Auto 0.000 0.0-0.012 X10*3/uL White Blood Count 11.9 4.8-10.8 X10*3/uL Red Blood Count 4.72 4.20-5.50 X10*6/uL Hemoglobin 13.7 12.0-16.0 g/dl Hematocrit 39.4 37.0-47.0 % Mean Corpuscular Volume 83.5 80.0-98.0 fL Mean Corpuscular Hemoglobin 29.0 27.0-33.0 pg Mean Corpuscular HGB Conc 34.8 31.0-35.0 g/dl Red Cell Distribution Width 12.8 11.0-16.0 % Platelet Count 304 160-400 X10*3/uL Mean Platelet Volume 11.0 9.4-12.3 fL Neutrophils Percent Auto 90.8 45-73 % Imm Gran Pct Auto 0.3 0.0-0.4 % Lymphocytes Percent Auto 3.7 20-40 % Monocytes Percent Auto 5.0 2-11 % Eosinophils Percent Auto 0.0 0-4 % Basophils Percent Auto 0.2 0-2 % NRBC Pct Auto 0.0 0.0-0.2 /100WBC Neutrophils Absolute Auto 10.8 2.0-8.3 x10*3/u L Imm Gran Abs Auto 0.04 0.00-0.03 X10*3/uL Lymphocytes Absolute Auto 0.4 1.2-4.9 X10*3/u L Monocytes Absolute Auto 0.6 0.1-1.2 X10*3/uL Eosinophils Absolute Auto 0.0 0.0-0.4 X10*3/u L Basophils Absolute Auto 0.0 0.0-0.2 X10*3/uL NRBC Abs Auto 0.000 0.0-0.012 X10*3/uL CORRECTED REPORT CORRECTED REPORT Ur Preg Test Reviewed date:02/20/2024 12:49:23 PM Interpretation: Performing Lab:[facility], [address] [place] [phone] Notes/Report: Urine NEGATIVE NEGATIVE This test was developed to detect early . False negative results may occur after the 5th - 7th week of when using this test method. If clinically indicated, consider a serum hCG. Liver Panel Reviewed date:02/20/2024 10:14:04 AM Interpretation: Performing Lab:[facility], [address] [place] [phone] Notes/Report: Bilirubin Total 0.5 0.0-1.0 mg/dL Bilirubin Direct 0.2 0.0-0.5 mg/dL Aspartate Amino Transferase 27 5-31 U/L Alanine Aminotransferase 30 0-31 U/L Total Protein 7.4 6.5-8.0 g/dL Albumin Level 4.1 3.5-5.0 g/dL Alkaline Phosphatase 72 39-117 U/L Basic Metabolic Panel Reviewed date:02/20/2024 11:04:09 AM Interpretation: Performing Lab:[facility], [address] [place] [phone] Notes/Report: Sodium 136 135-145 mmol/L Potassium 4.2 3.3-5.1 mmol/L Chloride 105 96-108 mmol/L Carbon Dioxide 23 22-29 mmol/L Anion Gap 12 12-20 Blood Urea Nitrogen 19 9-16 mg/dL Creatinine 0.98 0.5-1.4 mg/dL Creatinine Clr Calc Pharmacy 94.6 Provided height and weight: 167.64 cm, 120 kg. eGFR (calculated from the MDRD study equation) and eCrCl (calculated from the Cockcroft-Gault equation) are based on different parameters and may not yield comparable results. If eCrCl result is absurd, please check patient's height/weight. Estimated Glomerular Filt Rate > 60 Chronic Kidney Disease: Estimated GFR < 60 mL/min/1.73m2 Severe Kidney Disease: Estimated GFR < 15 mL/min/1.73m2 Glucose Random 135 60-115 mg/dL Calcium 9.3 8.4-10.2 mg/dL Magnesium Reviewed date:02/20/2024 11:04:17 AM Interpretation: Performing Lab:[facility], [address] [place] [phone] Notes/Report: Magnesium 1.6 1.6-2.6 mg/dL Lipase Reviewed date:02/20/2024 10:45:01 AM Interpretation: Performing Lab:[facility], [address] [place] [phone] Notes/Report: Lipase 12 8-78 U/L SLIDE REVIEW Reviewed date:02/20/2024 11:03:22 AM Interpretation: Performing Lab:[facility], [address] [place] [phone] Notes/Report: SLIDE REVIEW VERIFIED UA ClnCatch+Micro w/rflx Cul t Reviewed date:02/20/2024 04:58:15 PM Interpretation: Performing Lab:[facility], [address] [place] [phone] Notes/Report: Urine, Clean Catch Color Urine Dark Yellow Appearance Urine Turbid PH 5.5 5.0-9.0 Glucose Urine UA Negative Negative mg/dL Urine Blood Negative Negative Specific [place] - Urine >= 1.030 1.005-1.025 Urine Protein 30 (1+) Neg-Trace mg/dL Urine Ketones Trace Negative mg/dL Nitrite Urine Negative Negative Leukocyte Esterase Urine Negative Negative RBC Urine 0-2 0-2 /HPF WBC Urine 0-5 0-5 /HPF Squamous Epithelial Cell Urine 6-10 0-2 /HPF Bacteria Urine 1+ None Seen Hyaline Casts Urine 3-5 0-2 /LPF Reason For Referral No Information Medications Medication SIG (Take, Route, Frequency, Duration) Notes Start Date End Date Status Excedrin Migraine 250-250-65 MG 2 tablets Orally Once a day for 30 day(s) Not-Taking Hyoscyamine Sulfate ER 0.375 MG TAKE 1 TABLET BY MOUTH EVERY DAY for 30 Active Imitrex 50 MG 1 tablet at least 2 hours between doses as needed Orally Twice a day as needed 09/25/2022 Active Omeprazole 20 MG 1 capsule 1/2 to 1 h our before morning meal Orally Once a day for 90 days 01/21/2024 Active Albuterol Sulfate HFA 108 (90 Base) MCG/ACT 1 puff as needed Inhalation every 4 hrs for 30 days 01/21/2024 Active Immunizations Vaccine Route Administration Date Status Comme nts Fluarix Quadrivalent IM Intramuscular 11/27/2022 Administe red Fluarix Quadrivalent - 150 IM Intramuscular 01/10/2024 Adm inistered Social History Tobacco Use: Social History Observation Description Date Details (start date - stop date) Never Smoker NA - NA Tobacco Use/Smoking Question Answer Notes Patient is a nonsmoker Additional Findings: Tobacco Non-User Cu rrent non-smoker, currently using no form of tobacco Alcohol Screen Question Answer Notes Did you have a drink contain ing alcohol in the past year? Yes How often did you have a dri nk containing alcohol in the past year? Monthly or less (1 point) How many drinks did you have on a typical day when you were drinking in the past year? 1 or 2 drinks (0 point) How often did you have 6 or more drinks on one occasion in the past year? Never (0 point) Points 1 Interpretation Negative Problems Problem Type SNOMED Code ICD Code Onset Dates Problem Status W/U Status Risk Notes Problem migraine (disorder) (90063742) Migraines (G43.909) Active confirmed Problem 09703782 Irritable bowel syndrome with both constipation and diarrhea (K58.2) Active confirmed Problem Body mass index 40+ - morbidly obese (314505585) BMI 40.0-44.9, adult (Z68.41) Active confirmed Problem 054178192 Active asthma (J45.909) Active confirmed Vital Signs Height 66 in 01/21/2024 Weight 273 lbs 01/21/2024 BMI 44.06 kg/m2 01/21/2024 Procedures Procedure Date Ordered Date Performed Result Body Sit e Colonoscopy, Screening 07/02/2023 07/02/2023 Follow up 10 years Encounters Encounter Location Date Provider Diagnosis Bradley Carcamo MD [address] [place] [phone] 01/10/2024 Bradley Carcamo Blood tests for routine general physical examination Z00.00 and Encounter for immunization Z23 Bradley Carcamo MD [address] [place] [phone] 01/21/2024 Bradley Carcamo Microscopic hematuri a R31.29 ; Annual physical exam Z00.00 ; BMI 40.0-44.9, adult Z68.41 ; Active asthma J45.909 ; Esophageal dysphagia R13.19 ; Irritable bowel syndrome with both constipation and diarrhea K58.2 and Depression screening Z13.31 Bradley Carcamo MD [address] [place] [phone] 02/27/2024 Bradley Carcamo Assessments Encounter Date Diagnosis (ICD Code) Assessment Notes Treatment Notes Treatment Clinical Notes Section Notes 01/10/2024 Blood tests for routine general physical examination (ICD-10 - Z00.00) 01/10/2024 Encounter for immunization (ICD-10 - Z23) 01/21/2024 Microscopic hematuria (ICD-10 - R31.29) was having period./ per patient order given to patient 01/21/2024 Annual physical exam (ICD-10 - Z00.00) labs reviewed and discussed with patient 01/21/2024 BMI 40.0-44.9, adult (ICD-10 - Z68.41) we talked about her barriers to healthy eating 01/21/2024 Active asthma (ICD-10 - J45.909) had been doing well but needs some inhalers now. if the SAB doesn't work will give something like advair 01/21/2024 Esophageal dysphagia (ICD-10 - R13.19) seems likely to be a schatzky ring.will do ugi 01/21/2024 Irritable bowel syndrome with both constipation and diarrhea (ICD-10 - K58.2) dr uribe increase her meds 01/21/2024 Depression screening (ICD-10 - Z13.31) Plan Of Treatment Pending Test Test Name Order Date XR GI SERIES 01/21/2024 Urinalysis and Microscopic 01/21/2024 Next Appt Details Provider Name:Bradley Kelly ier, 04/24/2024 02:00:00 PM, [address] [place] [address], Suite [facility], [place], [place], [phone], Provider Name:Bradley Kelly ier, 01/19/2025 08:00:00 AM, [address] [place] [address], Suite [facility], [place], [place], [phone], Provider Name:Bradley Kelly ier, 01/26/2025 02:30:00 PM, [address] [place] [address], [place] [address], [place], [place], [phone], Insurance Providers Payer Name Payer Address Payer Phone Subscriber Number Group Number Insured Name Patient Relationship to Insured Coverage Start Date Coverage End Date [employer] [facility] [address] [place], [place] [phone] [id number] Ariadna Sampson Self - patient is the insured Medical (General) History Medical History History ICD Code Colonoscopy 07/02/23 f/u 10 y
--- OUTSIDE RECORDS SUMMARY | 2024-04-10 10:11 | XMS_ITS ---
Author Organization [facility] Address [address] [place] [address] Care Team Providers Care Topstitcher Lockstitch Name Role Phone Bradley Carcamo MD Primary Care Provider Mitesh Ba Jr REASON FOR VISIT screening Encounters Encounter Location Date Provider Diagnosis [facility] [address] [place], [place] [phone] 07/02/2023 Mitesh Sr Jr Encounter for screening colonoscopy Z12.11 ASSESSMENTS Encounter Date Diagnosis Assessment Notes Treatment Notes Treatment Clinical Notes 07/02/2023 Encounter for screening colonoscopy (ICD-10 - Z12.11) PLAN OF TREATMENT No Information
--- OUTSIDE RECORDS SUMMARY | 2024-04-10 10:11 | XMS_ITS | Patient Health Record ---
Author Organization [facility] Address [address] [place] [address] Care Team Providers Care Consultant Education Name Role Phone Bradley Carcamo MD Primary Care Provider Morena Sr Jr, Mitesh Unavailable ALLERGIES No Known Allergies RESULTS Component Value Reference Range Notes TSH reflex Free T4 Reviewed date:05/28/2023 04:33:32 PM Interpretation: Performing Lab:[facility], [address] [place] [phone] Notes/Report: TSH reflex Free T4 1.62 0.32-4.0 uIU/mL Immunoglobulin A Reviewed date:05/28/2023 04:32:38 PM Interpretation: Performing Lab:[facility], [address] [place] [phone] Notes/Report: Immunoglobulin A 145 47-310 mg/dL THIS TEST WAS PERFORMED AT: [facility] [address] [place] [phone] FARIHA SANCHEZ MD Transglutaminase IgA Reviewed date:05/28/2023 04:33:40 PM Interpretation: Performing Lab:[facility], [address] [place] [phone] Notes/Report: Transglutaminase IgA <1.0 Value Interpretation ----- <15.0 Antibody not detected > or = 15.0 Antibody detected THIS TEST WAS PERFORMED AT: [facility] [address] [place] [phone] FARIHA SANCHEZ MD Ur Preg Test Reviewed date:07/02/2023 02:42:36 PM Interpretation: Performing Lab:[facility], [address] [place] [phone] Notes/Report: Urine NEGATIVE NEGATIVE This test was developed to detect early . False negative results may occur after the 5th - 7th week of when using this test method. If clinically indicated, consider a serum hCG. REASON FOR REFERRAL No Information MEDICATIONS Medication SIG (Take, Route, Frequency, Duration) Notes Start Date End Date Status Excedrin Migraine 250-250-65 MG 2 tablets Orally Once a day for 30 day(s) Active Claritin 10 MG 1 tablet Orally Once a day for 30 day(s) Active Hyoscyamine Sulfate ER 0.375 MG TAKE 1 TABLET BY MOUTH EVERY 12 HOURS FOR 30 DAYS for 30 Active SUMAtriptan Succinate 50 MG Oral for 10 Active MiraLax (colon prep) 17 GM/SCOOP mixed with Gatorade or Crystal Light Orally begin at 5:00 p.m. the day before the procedure for 1 day 05/23/2023 Active SOCIAL HISTORY Tobacco Use: Social History [...] both constipation and diarrhea (K58.2) Active confirmed 12636022 Problem Colon cancer screening (Z12.11) Active confirmed 069105402 VITAL SIGNS Blood pressure diastolic 00 mm Hg 05/23/2023 Height 5 ft 6 in in 05/23/2023 Blood pressure systolic 00 mm Hg 05/23/2023 Weight 271 lbs 05/23/2023 BMI 43.74 kg/m2 05/23/2023 Encounters Encounter Location Date Provider Diagnosis [facility] [place] [facility] [address] [place] [phone] 07/02/2023 Mitesh Sr Jr Encounter for screening colonoscopy Z12.11 [facility] [address] [place] [address] 05/23/2023 Mitesh Sr Jr Irritable bowel syndrome with both constipation and diarrhea K58.2 and Colon cancer screening Z12.11 [facility] [address] [place] [phone] 05/28/2023 Mitesh Sr Jr ASSESSMENTS Encounter Date Diagnosis Assessment Notes Treatment Notes Treatment Clinical Notes 07/02/2023 Encounter for screening colonoscopy (ICD-10 - Z12.11) 05/23/2023 Colon cancer screening (ICD-10 - Z12.11) 05/23/2023 Irritable bowel syndrome with both constipation and diarrhea (ICD-10 - K58.2) Irritable bowel syndrome material was printed PLAN OF TREATMENT Pending Test Test Name Order Date IgA 05/23/2023 TRANSGLUTAMINASE AB IGA 05/23/2023 Future Test Test Name Order Date COLONOSCOPY 05/23/2023 Insurance Providers Payer Name Payer Address Payer Phone Subscriber Number Group Number Insured Name Patient Relationship to Insured Coverage Start Date Coverage End Date [facility] [address] [place] [address] [phone] [id number] SAGAR RUVALCABA Self - patient is the insured MEDICAL (GENERAL) HISTORY Medical History History ICD Code Migraine headaches Seasonal allergic rhinitis Irritable bowel syndrome with both diarr hea and constipation Surgical History Surgery Date(Month/Year)
--- OUTSIDE RECORDS SUMMARY | 2024-04-10 10:12 | XMS_ITS ---
Author Organization Bradley Carcamo MD Address [address] [place] [address] [place] [phone] Care Team Providers Care Library Historian Name Role Phone Bradley Carcamo Primary Care Provider REASON FOR VISIT ER Encounters Encounter Location Date Provider Diagnosis Bradley Carcamo MD [address] [place] [address] [address] [place], [place] [phone] 02/27/2024 Bradley Carcamo Plan Of Treatment Next Appt Details Provider Name:Bradley quintana, 04/24/2024 02:00:00 PM, [address] [place] [address], [address] [place] [address], [phone], Provider Name:Bradley quintana, 01/19/2025 08:00:00 AM, [address] [place] [address], [address] [place] [address], [phone], Provider Name:Bradley quintana, 01/26/2025 02:30:00 PM, [address] [place] [address], [address] [place] [address], [phone], Progress Notes * NILOAriadnaDOB:[birth year] (48 yo F)Acc No.[id number]:02/27/2024 Patient:?Flor Corcoran :1975???Age:48 Y???Sex:Female Address:[address] [place], [address] * true * Date:? Generated for Portillo soares/Vanessa/Shyann on:?04/10/2024 10:12 AM EST
--- OUTSIDE RECORDS SUMMARY | 2024-04-10 10:12 | XMS_ITS ---
Author Organization [facility] Address [address] [place] [phone] Care Team Providers Care Campus Monitor Name Role Phone Bradley Carcamo MD Primary Care Provider Mitesh Ba Jr [phone] REASON FOR VISIT labs Encounters Encounter Location Date Provider Diagnosis [facility] [address] [place] [phone] 05/28/2023 Mitesh Sr Jr PLAN OF TREATMENT No Information
--- OUTSIDE RECORDS SUMMARY | 2024-04-10 10:12 | XMS_ITS ---
Author Organization Bradley Carcamo MD Address [address] [place] [phone] Care Team Providers Care Machine Shorthand Reporter Name Role Phone Bradley Carcamo Primary Care Provider Allergies No Known Allergies REASON FOR VISIT annual visit, CBACK HEMATURIA Medications Medication SIG (Take, Route, Frequency, Duration) [...] 4 hrs for 30 days 01/21/2024 Active Social History Tobacco Use: Social History Observation [...] Problem Status W/U Status Risk Notes Problem [id number] Active asthma (J45.909) Active confirmed Vital Signs Height 66 in 01/21/2024 Weight 273 lbs 01/21/2024 BMI 44.06 kg/m2 01/21/2024 Encounters Encounter Location Date Provider Diagnosis Bradley Carcamo MD [address] [place] [address] [address] [place], [place] [phone] 01/21/2024 Bradley Carcamo Microscopic hematuri a R31.29 ; Annual physical exam Z00.00 ; BMI 40.0-44.9, adult Z68.41 ; Active asthma J45.909 ; Esophageal dysphagia R13.19 ; Irritable bowel syndrome with both constipation and diarrhea K58.2 and Depression screening Z13.31 Assessments Encounter Date Diagnosis (ICD Code) Assessment Notes Treatment Notes Treatment Clinical Notes Section Notes 01/21/2024 Microscopic hematuria (ICD-10 - R31.29) was [...] screening (ICD-10 - Z13.31) Plan Of Treatment Medication Medication Name Sig Start Date Stop Date Notes Omeprazole 20 MG 1 capsule 1/2 to 1 h our before morning meal Orally Once a day for 90 days 01/21/2024 Albuterol Sulfate HFA 108 (9 0 Base) MCG/ACT 1 puff as needed Inhalation every 4 hrs for 30 days 01/21/2024 Treatment Notes Assessment Notes Microscopic hematuria was having period. / per patient order given to patient Annual physical exam labs reviewed and d iscussed with patient BMI 40.0-44.9, adult we talked about her barriers to healthy eating Active asthma had been doing well but needs some inhalers now. if the SAB doesn't work will give something like advair Esophageal dysphagia seems likely to be a schatzky ring.will do ugi Irritable bowel syndrome wit h both constipation and diarrhea dr uribe increase her meds Pending Test Test Name Order Date XR GI SERIES 01/21/2024 Urinalysis and Microscopic 01/21/2024 Next Appt Details Follow Up: after ugi, Reason : Provider Name:Bradley Kelly ier, 04/24/2024 02:00:00 PM, [address] [place] [address], Suite [facility], [place], [place], [phone], Provider Name:Bradley Kelly ier, 01/19/2025 08:00:00 AM, [address] [place] [address], [address], [place], [place], [phone], Provider Name:Bradley Kelly ier, 01/26/2025 02:30:00 PM, [address] [place] [address], [address], [place], [place], [phone], Progress Notes * Ariadna CASTDOB:[birth year] (48 yo F)Acc No.[id number]:01/21/2024 Progress Notes Patient:?Flor Cast Provider:?Bradley Carcamo MD :1975???Age:48 Y???Sex:Female D ate:01/21/2024 [facility] [id number] Subjective: * Chief Complaints: * ???Annual visitCBACK HEMATUR IA * HPI: ???Depression Screening:?PHQ-9?Little interest or pleasure in doing things?Not at all,?Feeling down, depressed, or hopeless?Not at all,?Trouble falling or staying asleep, or sleeping too much?Not at all,?Feeling tired or having little energy?Not at all,?Poor appetite or overeating?Not at all,?Feeling bad about yourself or that you are a failure, or have let yourself or your family down?Not at all,?Trouble concentrating on things, such as reading the newspaper or watching television?Not at all,?Moving or speaking so slowly that other people could have noticed; or the opposite, being so fidgety or restless that you have been moving around a lot more than usual?Not at all,?Thoughts that you would be better off or of hurting yourself in some way?Not at all,?Total Score?0.?Interpretation and Intervention?Depression Screening Findings?Negative,?Follow-Up for Depression?: review of PHQ-9 found negative result, no follow-up needed.?Communication Needs:?Communication Needs?Does the patient have a hearing impairment?No,?Does the patient have a vision impairment??Yes,?If yes, what is the vision impairment??Glasses,?Does the patient have a cognition impairment??No.?SDOH Questions:?SDOH Questions?In the past year have you been worried about losing housing??No,?In the past year have you or any family members you live with been unable to get any of the following when it was really needed? Check all that apply:?None.?Symptom(s):? patient is a 48 yo female here for annual visit with review of recent labs and follow up of chronic issues. having trouble with food getting stuck when eating taking omeprazole and took care of heartburn. * ROS:?General/Constitutional:?Patient denies?fatigue , headache.?Change in appetite?denies.?Chills?denies.?Fever?denies.?Ophthalmologic:?Blurred vision?denies.?Discharge?denies.?Pain?denies.?ENT:?Patient denies?decreased sense of smell , any loss of taste , sore throat.?Decreased hearing?denies.?Sore throat?denies.?Swollen glands?denies.?Endocrine:?Cold intolerance?denies.?Excessive thirst?denies.?Heat intolerance?denies.?Weight loss?denies.?Respiratory:?Comments?asthma is bothering her now..?Cough?denies.?Shortness of breath at rest?denies.?Shortness of breath with exertion?denies.?Wheezing?denies.?Cardiovascular:?Chest pain at rest?denies.?Chest pain with exertion?denies.?Irregular heartbeat?denies.?Shortness of breath?denies.?Gastrointestinal:?Abdominal pain?denies.?Change in bowel habits?denies.?Diarrhea?denies.?Nausea?denies.?Rectal bleeding?denies.?Vomiting?denies .?Genitourinary:?Blood in urine?denies.?Difficulty urinating?denies.?Frequent urination?denies.?Urinary incontinence?Denies.?Musculoskeletal:?Patient denies?muscle aches.?Painful joints?denies.?Weakness?denies.?Peripheral Vascular:?Patient denies?red and blue toes.?Skin:?Dry skin?denies.?Itching?denies.?Denies?Mole(s),? changes in moles, new moles or any lesions of concern.?Denies?Photosensitivity.?Rash?denies.?Neurologic:?Dizziness?denies.?Fainting?denies.?Headache?denies.? * Medical History:? * Surgical History:? * Hospitalization/Major Diagno stic Procedure:? * Family History:?Father: ashlie daley 73 yrs.?Mother: alive 73 yrs.? Denies mental health/substance abuse family history. * Social History:?Tobacco Use:?Tobacco Use/Smoking?Patient is a?nonsmoker,?Additional Findings: Tobacco Non-User?Current non-smoker, currently using no form of tobacco.?Drugs/Alcohol:?Alcohol Screen?Did you have a drink containing alcohol in the past year??Yes,?How often did you have a drink containing alcohol in the past year??Monthly or less (1 point),?How many drinks did you have on a typical day when you were drinking in the past year??1 or 2 drinks (0 point),?How often did you have 6 or more drinks on one occasion in the past year??Never (0 point),?Points?1,?Interpretation?Negative.?Miscellaneous:?Caffeine: yes, frequency:, 2-3 cups per day. no Children. no Exercise. Home smoke detector use: yes. Housing: living with relatives. Living with: family. Occupation: works full-time. no Travel outside of the [place]. * Medications:?TakingImitrex 5 0 MG Tablet 1 tablet at least 2 hours between doses as needed Orally Twice a day as neededHyoscyamine Sulfate ER 0.375 MG Tablet Extended Release 12 Hour TAKE 1 TABLET BY MOUTH EVERY DAY Taking Imitrex 50 MG Tablet 1 tablet at least 2 hours between doses as needed Orally Twice a day as neededTaking Hyoscyamine Sulfate ER 0.375 MG Tablet Extended Release 12 Hour TAKE 1 TABLET BY MOUTH EVERY DAY Not-Taking/PRNExcedrin Migraine 250-250-65 MG Tablet 2 tablets Orally Once a dayMedication List reviewed and reconciled with the patientNot-Taking/PRN Excedrin Migraine 250-250-65 MG Tablet 2 tablets Orally Once a dayMedication List reviewed and reconciled with the patient * Allergies:?N.K.D.A.yes[Aller gies Verified] Objective: * Vitals:?Ht: 66, Wt:273, BMI: 44.06, Wt-k.83. * Examination: ???General Examination: ?GENERAL APPEARANCE:?well developed, well nourished, in no acute distress.?HEAD:?normocephalic, atraumatic.?EYES:?pupils equal, round, reactive to light and accommodation, sclera non-icteric.?EARS:?normal.?ORAL CAVITY:?mucosa moist.?THROAT:?clear.?NECK/THYROID:?neck supple, full range of motion, no cervical lymphadenopathy, no bruits.?SKIN:?warm and dry, no suspicious lesions.?HEART:?regular rate and rhythm, S1, S2 normal, no murmurs.?LUNGS:?clear to auscultation bilaterally.?BREASTS:?No mass, no lump.?ABDOMEN:?soft, nontender, nondistended, bowel sounds present, normal, no organomegaly , no masses palpable.?RECTAL EXAM:?done by plastic molding operator.?FEMALE GENITOURINARY:?done by plastic molding operator.?EXTREMITIES:?no clubbing, cyanosis, or edema.?NEUROLOGIC:?nonfocal, motor strength normal upper and lower extremities, sensory exam intact.? Assessment: * Assessment: 1.?Annual physical exam - Z0 0.00 (Primary)?2.?Microscopic hematuria - R31.29?3.?BMI 40.0-44.9, adult - Z68.41?4.?Active asthma - J45.909?5.?Esophageal dysphagia - R13.19?6.?Irritable bowel syndrome with both constipation and diarrhea - K58.2 7.?Depression screening - Z13.31? Plan: * Treatment: 2.?Microscopic hematuria? Start Albuterol Sulfate HFA Aerosol Solution, 108 (90 Base) MCG/ACT, 1 puff as needed, Inhalation, every 4 hrs, 30 days, 1, Refills 5;?Start Omeprazole Capsule Delayed Release, 20 MG, 1 capsule 1/2 to 1 hour before morning meal, Orally, Once a day, 90 days, 90, Refills 3.?LAB: Urinalysis and Microscopic Notes: was having period./ per patient order given to patient?? 3.?BMI 40.0-44.9, adult? Notes: we talked about her barriers to healthy eating?? 4.?Active asthma? Notes: had been doing well but needs some inhalers now. if the SAB doesn't work will give something like advair?? 5.?Esophageal dysphagia?Imaging: XR GI SERIES Notes: seems likely to be a schatzky ring.will do ugi?? 6.?Irritable bowel syndrome with both constipation and diarrhea? Notes: dr uribe increase her meds?? * Procedure Codes:? * Preventive Medicine:? ??Counseling:?Care goal follow-up plan:?Counseling for abnormal BMI provided?Yes,?Above Normal BMI Follow-up?Giving encouragement to exercise.? * Follow Up:?after ugi * * Sign off status: Completed true * Provider:?Bradley Carcamo MD Date:?1 03/22/2023 Generated for Portillo soares/Vanessa/eTransmitting on:?04/10/2024 10:11 AM EST History and Physical Notes * HPI (History of Present Illness) Category Sub-Category Detail Notes Category Not es Symptom(s) patient is a 48 yo female here for annual visit with review of recent labs and follow up of chronic issues. having trouble with food getting stuck when eating taking omeprazole and took care of heartburn. Depression Screening PHQ-9 Little inte rest or pleasure in doing things: Not at all Feeling down, depressed, or hopeless: No t at all Trouble falling or staying asleep, or sl eeping too much: Not at all Feeling tired or having little energy: N ot at all Poor appetite or overeating: Not at all Feeling bad about yourself o r that you are a failure, or have let yourself or your family down: Not at all Trouble concentrating on thi ngs, such as reading the newspaper or watching television: Not at all Moving or speaking so slowly that other people could have noticed; or the opposite, being so fidgety or restless that you have been moving around a lot more than usual: Not at all Thoughts that you would be b bobby off or of hurting yourself in some way: Not at all Total Score: 0 Interpretation and Intervention Depression Jose bales Findings: Negative Follow-Up for Depression: : review of PH Q-9 found negative result, no follow-up needed SDOH Questions SDOH Questions In the past year have you been worried about losing housing?: No In the past year have you or any family members you live with been unable to get any of the following when it was really needed? Check all that apply:: None Communication Needs Communication Needs Does the patient have a hearing impairment: No Does the patient have a vision impairmen t?: Yes ?If yes, what is the vision impairment?: Glasses Does the patient have a cognition impair ment?: No Examination Category Sub-Category Detail Notes Category Not es General Examination GENERAL APPEARANCE: well dev eloped, well nourished, in no acute distress HEAD: normocephalic, atrau matic EYES: pupils equal, round, reactive to light and accommodation, sclera non- icteric EARS: normal THROAT: clear NECK/THYROID: neck supple, full ra nge of motion, no cervical lymphadenopathy, no bruits HEART: regular rate and rhy thm, S1, S2 normal, no murmurs LUNGS: clear to auscultatio n bilaterally ABDOMEN: soft, nontender, non distended, bowel sounds present, normal, no organomegaly , no masses palpable NEUROLOGIC: nonfocal, motor stre ngth normal upper and lower extremities, sensory exam intact SKIN: warm and dry, no zuly picious lesions EXTREMITIES: no clubbing, cyanosi s, or edema BREASTS: No mass, no lump RECTAL EXAM: done by plastic molding operator FEMALE GENITOURINARY: done by plastic molding operator ORAL CAVITY: mucosa moist
--- OUTSIDE RECORDS SUMMARY | 2024-04-10 10:12 | XMS_ITS ---
Author Organization Bradley Carcamo MD Address [address] [place], [place] [phone] Care Team Providers Care Dry Pan Charger Name Role Phone Bradley Carcamo Primary Care Provider [phone] Results Component Value Reference Range Notes Complete Blood Count Auto Di ff Reviewed date:01/10/2024 12:46:28 PM Interpretation: Performing Lab:[facility], [address] [place] [phone] Notes/Report: White Blood Count 8.0 4.8-10.8 X10*3/uL [...] NRBC Abs Auto 0.000 0.0-0.012 X10*3/uL Comprehensive [place]. Panel Fa st Reviewed date:01/10/2024 12:48:05 PM Interpretation: Performing Lab:[facility], [address] [place] [phone] Notes/Report: Sodium 138 135-145 mmol/L Potassium 4.1 [...] Panel Reviewed date:01/10/2024 12:16:21 PM Interpretation: Performing Lab:[facility], [address] [place] [phone] Notes/Report: Triglycerides 159 <150 mg/dL Desirable Triglyceride: [...] date:01/21/2024 02:59:27 PM Interpretation:CBACK 01/20 HEMATURIA Performing Lab:[facility], [address] [place] [phone] Notes/Report: Urine, Clean Catch Color Urine Yellow Appearance Urine Cloudy PH 5.5 5.0-9.0 Glucose Urine UA Negative Negative mg/dL Urine Blood Moderate (2+) Negative Specific [place] - Urine 1.015 1.005-1.025 Urine Protein Negative Neg-Trace mg/dL Urine Ketones Negative Negative mg/dL Nitrite Urine Negative Negative Leukocyte Esterase Urine Negative Negative RBC Urine 0-2 0-2 /HPF WBC Urine 0-5 0-5 /HPF Squamous Epithelial Cell Urine 11-20 0-2 /HPF Bacteria Urine 3+ None Seen Hyaline Casts Urine 0-2 0-2 /LPF REASON FOR VISIT yearly fasting labs Immunizations Vaccine Route Administration Date Status Comme nts Fluarix Quadrivalent - 150 IM Intramuscular 01/10/2024 Adm inistered Encounters Encounter Location Date Provider Diagnosis Bradley Carcamo MD [address] [place] [phone] 01/10/2024 Bradley Carcamo Blood tests for routine general physical examination Z00.00 and Encounter for immunization Z23 Assessments Encounter Date Diagnosis (ICD Code) Assessment Notes Treatment Notes Treatment Clinical Notes Section Notes 01/10/2024 Blood tests for routine general physical examination (ICD-10 - Z00.00) 01/10/2024 Encounter for immunization (ICD-10 - Z23) Plan Of Treatment Next Appt Details Provider Name:Bradley quintana, 04/24/2024 02:00:00 PM, [address], [address], [place], [place], [phone], Provider Name:Bradley Kelly ier, 01/19/2025 08:00:00 AM, [address], [address], [place], [phone], Provider Name:Bradley Kelly ier, 01/26/2025 02:30:00 PM, [address], [address], [place], [phone], Progress Notes * Ariadna CASTDOB:[birth year] (48 yo F)Acc No.[id number]:01/10/2024 Progress Note Patient:?Flor CAST Provider:?Bradley Carcamo MD :1975???Age:48 Y???Sex:Female D ate:01/10/2024 Address:[address] [place], [place] [phone] Subjective: * Chief Complaints: * ???1. Yearly fasting labs. * Medical History:? Objective: * Vitals:? Assessment: * Assessment: 1.?Encounter for immunizatio n - Z23 (Primary)???2.?Blood tests for routine general physical examination - Z00.00??? Plan: * Treatment: * Immunizations:? Fluarix Quadrivalent - 150 : 0.5 mL (Dose No:1) (Route: Intramuscular) given by Rosemary Blue , Office Staff on Left Deltoid * Procedure Codes:?01515 FLU V ACCINE NO PRESERV 3 & >, 45578 IMMUNIZATION ADMIN, 22310 VENIPUNCT, ROUTINE* * * The named appointment provid er may or may not be the originator of this progress note, and it is not deemed complete until electronically signed by the appointment provider. Sign off status: Pending * Provider:?Bradley Carcamo MD Date:?1 03/11/2023 Generated for Portillo soares/Vanessa/eTransmitting on:?04/10/2024 10:11 AM EST
== END 2024-04-10 09:42 | disposition home or self-care (01) ==
LOC: HO.XRAY 09:41
PROVIDERS: PCP Internal Medicine; Visit Provider Internal Medicine
DX: R13.19 Other dysphagia (principal)
CPT/HCPCS: 74246

== ENCOUNTER → 2024-04-10 09:44 | Outpatient (BNV) | payer BC, SELFPAY | PROVIDERS: PCP Internal Medicine; Visit Provider Radiology Diagnostic Radiology | DX: R13.10 Dysphagia, unspecified (principal) | CPT/HCPCS: 74246; 74248 ==

== ENCOUNTER 2025-01-19 08:00 | Outpatient (REF) | payer BC, SELFPAY ==
[2025-01-19 10:41] LABS: MANUAL DIFF FLAG NO
[2025-01-19 11:05] LABS: Hematocrit 37.7 % (37.0-47.0); Hemoglobin 12.0 g/dl (12.0-16.0); Imm Gran Abs Auto 0.02 X10*3/uL (0.00-0.03); Imm Gran Pct Auto 0.3 % (0.0-0.4); Lymphocytes Absolute Auto 2.6 X10*3/uL (1.2-4.9); Mean Corpuscular HGB Conc 31.8 g/dl (31.0-35.0); Mean Corpuscular Hemoglobin 27.8 pg (27.0-33.0); Mean Corpuscular Volume 87.5 fL (80.0-98.0); NRBC Abs Auto 0.000 X10*3/uL (0.0-0.012); NRBC Pct Auto 0.0 /100WBC (0.0-0.2); Platelet Count 282 X10*3/uL (160-400); Red Blood Count 4.31 X10*6/uL (4.20-5.50); White Blood Count 7.4 X10*3/uL (4.8-10.8)
[2025-01-19 11:12] LABS: Appearance Urine Clear; Glucose Urine UA Negative (Negative); PH 5.5 (5.0-9.0); Specific Gravity - Urine 1.015 (1.005-1.025); UMIC TRIGGER UACC YES
[2025-01-19 11:20] LABS: Alanine Aminotransferase 23 U/L (0-31); Albumin Level 4.2 g/dL (3.5-5.0); Alkaline Phosphatase 78 U/L (39-117); Anion Gap 9 (12-20); Aspartate Amino Transferase 26 U/L (5-31); Blood Urea Nitrogen 17 mg/dL (9-16); Calcium 9.0 mg/dL (8.4-10.2); Carbon Dioxide 29 mmol/L (22-29); Chloride 107 mmol/L (96-108); Cholesterol 223 mg/dL (<200); Estimated Glomerular Filt Rate > 60; HDL Cholesterol 57 mg/dL (>40); Potassium 4.1 mmol/L (3.3-5.1); Sodium 141 mmol/L (135-145); Total Protein 6.9 g/dL (6.5-8.0); Triglycerides 178 mg/dL (<150)
[2025-01-19 11:35] LABS: UACC Culture Trigger YES
== END 2025-01-19 08:01 | disposition home or self-care (01) ==
LOC: HO.LNP 08:00
PROVIDERS: Visit Provider Internal Medicine
DX: Z00.00 Encounter for general adult medical examination without abnormal findings (principal); Z68.41 Body mass index [BMI] 40.0-44.9, adult; Z13.6 Encounter for screening for cardiovascular disorders
CPT/HCPCS: 80053; 80061; 81001; 85025; 87086